=== PATIENT | male | born 1965 | race American Indian/Alaskan Native ===

== ENCOUNTER 2016-12-06 11:11 | Emergency (ER) | payer SELFPAY ==
[2016-12-06] MEDS ORDERED: CATAPRES PO ONE (13:18)
--- NOTE | 2016-12-06 13:29 | Emergency Department Report ---
ED General Adult HPI - General Chief complaint: High BP Stated complaint: high blood pressure Time Seen by Provider: 12/06/16 13:18 Source: patient Mode of arrival: Ambulatory Limitations: No Limitations - History of Present Illness -: Gradual Associated Symptoms: denies other symptoms. denies: confusion, chest pain, cough, diaphoresis, fever/chills, headaches, loss of appetite, malaise, nausea/ vomiting, rash, seizure, shortness of breath, syncope, weakness Treatments Prior to Arrival: none (out of meds for 4 days; from [place]) - Related Data Previous Rx's Medication Instructions Recorded Last Taken Type Hydrochlorothiazide [Hctz] 12.5 mg PO QDAY #30 capsule 12/06/16 Unknown Rx Lisinopril [Zestril TAB] 20 mg PO QDAY #30 tablet 12/06/16 Unknown Rx amLODIPine [Norvasc] 5 mg PO DAILY #30 tab 12/06/16 Unknown Rx Allergies Allergy/AdvReac Type Severity Reaction Status Date / Time No Known Allergies Allergy Unverified 12/06/16 11:18 ED Review of Systems ROS: Stated complaint: high blood pressure Other details as noted in HPI Comment: Unobtainable due to pts medical conditions Constitutional: no symptoms reported, see HPI. denies: chills Eyes: as per HPI. denies: eye pain ENT: as per HPI. denies: ear pain, throat pain Respiratory: no symptoms reported, see HPI. denies: cough, orthopnea Cardiovascular: as per HPI. denies: chest pain, palpitations, dyspnea on exertion, orthopnea Endocrine: no symptoms reported, see HPI. denies: excessive sweating, flushing , intolerance to cold, intolerance to heat Gastrointestinal: as per HPI. denies: abdominal pain, nausea, vomiting Genitourinary: as per HPI. denies: urgency, dysuria Musculoskeletal: as per HPI. denies: back pain Skin: as per HPI. denies: rash, lesions Neurological: as per HPI. denies: headache, weakness Psychiatric: as per HPI, anxiety. denies: depression Hematological/Lymphatic: as per HPI. denies: easy bleeding ED Past Medical Hx - Past Medical History Hx Hypertension: Yes Additional medical history: eczema - Surgical History Past Surgical History?: Yes Hx Appendectomy: Yes - Social History Smoking Status: Never Smoker Substance Use Type: None - Medications Home Medications: Home Medications Medication Instructions Recorded Confirmed Last Taken Type Hydrochlorothiazide [Hctz] 12.5 mg PO QDAY #30 capsule 12/06/16 Unknown Rx Lisinopril [Zestril TAB] 20 mg PO QDAY #30 tablet 12/06/16 Unknown Rx amLODIPine [Norvasc] 5 mg PO DAILY #30 tab 12/06/16 Unknown Rx ED Physical Exam - General Limitations: No Limitations ED Course Vital Signs 12/06/16 12/06/16 11:18 13:32 Temperature 98.9 F Pulse Rate 83 83 Respiratory 20 Rate Blood Pressure 169/106 169/106 O2 Sat by Pulse 100 Oximetry Critical care attestation.: If time is entered above; I have spent that time in minutes in the direct care of this critically ill patient, excluding procedure time. ED Disposition Clinical Impression: Hypertension Disposition: DC-01 TO HOME OR SELFCARE Is pt being admited?: No Does the pt Need Aspirin: No Condition: Stable Instructions: Hypertension (ED) Additional Instructions: low salt diet take meds daily follow up with doctor Referrals: PRIMARY MD DELIA [Primary Care Provider] - 3-5 Days Time of Disposition: 14:10
[2016-12-06 14:35] VITALS: BP 171/88
== END 2016-12-06 14:34 | disposition home or self-care (01) ==
LOC: ED 11:11
DX: I10 Essential (primary) hypertension (principal); Z90.49 Acquired absence of other specified parts of digestive tract
CPT/HCPCS: 99282